=== PATIENT | female | born 1995 | race African-American/Black ===

== ENCOUNTER 2019-06-12 22:32 | Emergency (ER) | payer MEDICAID ==
[~2019-06-12] VITALS: Ht 157.5 cm; Wt 119.4 kg
[2019-06-12 22:47] VITALS: Ht 157.5 cm; Wt 119.4 kg
[2019-06-13 01:32] VITALS: BP 131/87
== END 2019-06-13 01:32 | disposition home or self-care (01) ==
LOC: ED 22:32
DX: R51 Headache (principal); R68.83 Chills (without fever); R20.2 Paresthesia of skin; R05 Cough
CPT/HCPCS: J1885; Q0163